=== PATIENT | male | born 1975 | race Caucasian/White ===

== ENCOUNTER 2016-10-04 15:50 | Emergency (ER) | payer SELFPAY ==
[2016-10-04 15:58] VITALS: BP 146/101
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
[2016-10-04] MEDS ORDERED: Acetaminophen TAB* 325 MG PO ONE (17:22)
--- NOTE | 2016-10-04 17:44 | RAD ---
Indication: Left wrist pain 3 views of the wrist demonstrates no fracture. No other bone or joint abnormality is identified. IMPRESSION: NO FRACTURE OF THE WRIST IS NOTED.
== END 2016-10-04 18:12 | disposition home or self-care (01) ==
LOC: UCEAST 15:50
DX: M25.532 Pain in left wrist (principal); V43.52XA Car driver injured in collision with other type car in traffic accident, initial encounter; R03.0 Elevated blood-pressure reading, without diagnosis of hypertension; F17.210 Nicotine dependence, cigarettes, uncomplicated
CPT/HCPCS: 99212; A9270-GY; G0463

== ENCOUNTER 2017-08-12 10:57 | Emergency (ER) | payer BC ==
[2017-08-12 12:39] VITALS: BP 125/79
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
--- NOTE | 2017-08-12 13:14 | RAD ---
Indication: Left hip pain. 2 views of left hip demonstrates no fracture. No other bone or joint abnormality is noted. IMPRESSION: No fracture of left hip is present.
== END 2017-08-12 13:28 | disposition home or self-care (01) ==
LOC: UCCORT 10:57
DX: S39.011A Strain of muscle, fascia and tendon of abdomen, initial encounter (principal); Y93.39 Activity, other involving climbing, rappelling and jumping off; Y93.89 Activity, other specified; Y92.9 Unspecified place or not applicable; Z88.0 Allergy status to penicillin; F17.210 Nicotine dependence, cigarettes, uncomplicated
CPT/HCPCS: 99212; G0463

== ENCOUNTER 2018-06-08 10:04 | Emergency (ER) | payer BC ==
--- NOTE | 2018-06-08 10:08 | UC ---
Respiratory Complaint HPI - HPI Summary HPI Summary: 42 yo male presents with fever, fatigue, body aches, and cough for the last 2 days. He has taken advil otc with mild relief. He is still smoking daily. Feels a little short of breath today. Does not believe he has had any sick contacts. Denies sore throat, sinus symptoms, chest pain, abdominal pain, n/v - History of Current Complaint Stated Complaint: URI Time Seen by Provider: 06/08/18 10:08 Hx Obtained From: Patient Onset/Duration: Sudden Onset Severity Initially: Moderate Severity Currently: Moderate Pain Intensity: 5 Pain Scale Used: 0-10 Numeric Character: Cough: Nonproductive - Allergies/Home Medications Allergies/Adverse Reactions: Allergies Allergy/AdvReac Type Severity Reaction Status Date / Time Penicillins Allergy Rash Verified 06/08/18 10:14 Home Medications: Home Medications Lisinopril TAB* [Prinivil TAB*] 10 mg PO DAILY 06/08/18 [History Confirmed 06/08] Naproxen Sodium [Aleve] 440 mg PO Q12HR PRN 06/08/18 [History Confirmed 06/08/18 ] PMH/Surg Hx/FS Hx/Imm Hx Endocrine History: Dyslipidemia Cardiovascular History: Hypertension - Surgical History Surgical History: Yes Surgery Procedure, Year, and Place: HERNIA, SHOULDER DECOMPRESSION RIGHT. REMOVAL OF MOLES - Family History Known Family History: Negative: Cardiac Disease, Hypertension, Diabetes - Social History Occupation: Unemployed Lives: With Family Alcohol Use: Weekly Substance Use Type: None Smoking Status (MU): Heavy Every Day Tobacco Smoker Type: Cigarettes Amount Used/How Often: 1 ppd Length of Time of Smoking/Using Tobacco: 20 yrs Have You Smoked in the Last Year: Yes - Immunization History Vaccination Up to Date: Yes Review of Systems All Other Systems Reviewed And Are Negative: Yes Constitutional: Positive: Fever, Fatigue, Other - Body aches Skin: Positive: Negative Eyes: Positive: Negative ENT: Positive: Negative Respiratory: Positive: Cough Cardiovascular: Positive: Negative Gastrointestinal: Positive: Negative Neurovascular: Positive: Negative Neurological: Positive: Negative Psychological: Positive: Negative Physical Exam - Summary Physical Exam Summary: GENERAL: NAD. WDWN. No pain distress. SKIN: No rashes, sores, lesions, or open wounds. HEENT: Head: AT/NC Eyes: Conjunctiva clear without inflammation or discharge. Ears: Hearing grossly normal. TMs intact, no bulging, erythema, or edema. Nose: Nasal mucosa pink and moist. NTTP maxillary and frontal sinus. Throat: Posterior oropharynx without exudates, erythema, or tonsillar enlargement. Uvula midline. NECK: Supple. Nontender. No lymphadenopathy. CHEST: Mild wheezing throughout. No r/r. No accessory muscle use. Breathing comfortably and in no distress. CV: RRR. Without m/r/g. Pulses intact. Cap refill <2seconds NEURO: Alert. PSYCH: Age appropriate behavior. Triage Information Reviewed: Yes Vital Signs: Vital Signs: Temp Pulse Resp BP Pulse Ox 98.9 F 102 24 129/78 94 06/08/18 10:12 06/08/18 10:12 06/08/18 10:12 06/08/18 10:12 06/08/18 10:12 Laboratory Tests 06/08/18 10:48 Influenza A (Rapid) Positive A Vital Signs Reviewed: Yes Respiratory Course/Dx - Course Course Of Treatment: CXR: IMPRESSION: #. Consider mild bronchopneumonia. Duoneb: Significant improvement. Pt feels easier to get a deep breath and coughing improved. Lung sounds improved with decreased wheezing. O2% still around 94%, but clinically is much improved. He has no significant comorbidities such as diabetes, COPD, or CHF/CAD. POC flu positive. Will dc with prednisone, tamiflu, and azithromycin. Encouraged to have a low threshold for returning for a recheck. If he develops SOB or worsening symptoms to go to the ED. - Differential Dx/Diagnosis Provider Diagnosis: Bronchopneumonia, Influenza Discharge - Sign-Out/Discharge Documenting (check all that apply): Patient Departure All imaging exams completed and their final reports reviewed: Yes - Discharge Plan Condition: Stable Disposition: HOME Prescriptions: Azithromycin TAB* [Zithromax TAB (Z-EM) 250 mg #6 tabs] 2 tab PO .TODAY, THEN 1 DAILY #1 em Oseltamivir CAP* [Tamiflu CAP*] 75 mg PO BID #10 cap predniSONE TAB* [Deltasone 20 MG TAB*] 40 mg PO DAILY #9 tab Patient Education Materials: Influenza (DC), Community Acquired Pneumonia (ED) Referrals: Mayo Vu MD [Primary Care Provider] - Additional Instructions: If you develop a fever, shortness of breath, chest pain, new or worsening symptoms - please call your PCP or go to the ED. 1) May take tylenol for your fever and general discomfort 2) Rest and drink plenty of fluids! - Billing Disposition and Condition Condition: STABLE Disposition: Home
[2018-06-08] MEDS ORDERED: Albuterol/Ipratropium NEB.SOL* Albuterol 2.5 MG/Ipratropium 0.5 MG 3 ML INH ONE (10:14)
[2018-06-08 10:17] VITALS: BP 129/78
[2018-06-08 10:53] LABS: Influenza A Molecular POSITIVE (Negative)
== END 2018-06-08 11:15 | disposition home or self-care (01) ==
LOC: UCEAST 10:04
DX: J11.08 Influenza due to unidentified influenza virus with specified pneumonia (principal); J18.0 Bronchopneumonia, unspecified organism; I10 Essential (primary) hypertension; Z88.0 Allergy status to penicillin; F17.210 Nicotine dependence, cigarettes, uncomplicated
CPT/HCPCS: 71046; 99212; A9270-GY; G0463

== ENCOUNTER 2019-04-28 18:32 | Emergency (ER) | payer BC ==
--- NOTE | 2019-04-28 18:52 | UC ---
Cardiac HPI - HPI Summary HPI Summary: 43 yo smoker who comes in with a one day history of left subscapular pain, severe enough to cause some discomfort with breathing. He has a hx of hypertension and smokes regularly, with a positive family history of NV in his father(3 NV's and past stenting, current age of 70). He has in the past had calcific tendonitis of the left shoulder and injections in the cervical spine for treatment of chronic neck pain. Pain relieves with resting and is worsened with sitting upright. - History of Current Complaint Stated Complaint: LEFT SHOULDER PAIN, HAND NUMBNESS Time Seen by Provider: 04/28/19 18:50 Hx Obtained From: Patient Onset/Duration: Gradual Onset, Lasting Hours - about 20 Timing: Constant Initial Severity: Moderate Current Severity: Moderate Character: Fast Aggravating Factor(s): Position Alleviating Factor(s): Rest, Position Associated Signs & Symptoms: Positive: Diaphoresis, Back Pain - Risk Factors Cardiac Risk Factors: Hypertension, Smoking, Family History Atrial Fibrillation: Negative TAD Risk Factors: Negative AMI/ACS Risk Factors: Obesity, Family History, Hypertension, Smoking - Allergy/Home Medications Allergies/Adverse Reactions: Allergies Allergy/AdvReac Type Severity Reaction Status Date / Time Penicillins Allergy Rash Verified 04/28/19 18:48 Home Medications: Home Medications Cetirizine HCl [Zyrtec] 10 mg PO DAILY 04/28/19 [History Confirmed 04/28/19] Cyclobenzaprine TAB* [Flexeril 10 MG TAB*] 10 mg PO DAILY 04/28/19 [History Confirmed 04/28/19] PMH/Surg Hx/FS Hx/Imm Hx Previously Healthy: No - obese smoker Endocrine History: Dyslipidemia Cardiovascular History: Hypertension - Surgical History Surgical History: Yes Surgery Procedure, Year, and Place: HERNIA, SHOULDER DECOMPRESSION RIGHT. REMOVAL OF MOLES - Family History Known Family History: Positive: Cardiac Disease - father has had NV's and stenting, living age 70+ Negative: Hypertension, Diabetes - Social History Occupation: Employed Full-time Lives: With Family Alcohol Use: Weekly Substance Use Type: None Smoking Status (MU): Heavy Every Day Tobacco Smoker Type: Cigarettes Amount Used/How Often: 1 ppd Length of Time of Smoking/Using Tobacco: 20 yrs Have You Smoked in the Last Year: Yes - Immunization History Vaccination Up to Date: Yes Review of Systems All Other Systems Reviewed And Are Negative: Yes Constitutional: Positive: Fatigue Skin: Positive: Negative Eyes: Positive: Negative ENT: Positive: Negative Respiratory: Positive: Shortness Of Breath Gastrointestinal: Positive: Negative Genitourinary: Positive: Negative Motor: Positive: Negative Neurovascular: Positive: Negative Musculoskeletal: Positive: Negative Neurological: Positive: Negative Psychological: Positive: Negative Is Patient Immunocompromised?: No Physical Exam Triage Information Reviewed: Yes Appearance: Pain Distress - mild to moderate, Obese, Other: - mildly flushed and diaphoretic. Vital Signs Reviewed: Yes Eyes: Positive: Conjunctiva Clear ENT: Positive: Pharynx normal Neck: Positive: Supple, Nontender, No Lymphadenopathy Respiratory: Positive: Lungs clear, Normal breath sounds Cardiovascular: Positive: RRR, No Murmur Abdomen Description: Positive: Nontender, No Organomegaly, Soft Musculoskeletal Exam: Normal Musculoskeletal: Positive: Strength Intact, Other: - tenderness left rhomboid at scapular insertion. Neurological Exam: Normal Neurological: Positive: Alert, Muscle Tone Normal Psychological Exam: Normal Skin Exam: Normal Diagnostics - EKG Cardiac Rate: NL Cardiac Rhythm: Sinus: Normal Ectopy: None ST Segment: Non-Specific - flipped t wave in 3, widened QRS complex in 3 with interventricular delay - Assessment/Plan Course Of Treatment: Advised ER given risk factors and EKG changes with conduction delay. Aspirin given at this time due to heart disease risk although chest pain is atypical. - Differential Diagnoses - Chest Pain Differential Diagnosis/HQI/PQRI: Acute NV, ACS, Chest Wall, GI Disease - Clinical Impression Provider Diagnosis: Back pain, Abnormal finding on EKG - Physician Notifications Discussed Patient Care With: Dr. Rowell Time Discussed With Above Provider: 19:15 Discharge ED - Sign-Out/Discharge Documenting (check all that apply): Patient Departure All imaging exams completed and their final reports reviewed: No Studies - Discharge Plan Condition: Stable Disposition: TRANS HIGHER LVL OF CARE FAC Patient Education Materials: Back Pain (ED) Referrals: Mayo Vu MD [Primary Care Provider] - Additional Instructions: Please proceed directly to the emergency room for evaluation of changes in your EKG along with pain in the posterior back. - Billing Disposition and Condition Condition: STABLE Disposition: Trans Higher Lvl of Care Fac
[2019-04-28 18:56] VITALS: BP 131/89
[2019-04-28] MEDS ORDERED: Aspirin 81 mg CHEW TAB* 81 MG TAB.CHEW PO ONE (19:03)
== END 2019-04-28 19:30 | disposition short-term general hospital (02) ==
LOC: UCCORT 18:32
DX: M54.9 Dorsalgia, unspecified (principal); R94.31 Abnormal electrocardiogram [ECG] [EKG]; I10 Essential (primary) hypertension; R53.83 Other fatigue; R06.02 Shortness of breath; Z88.0 Allergy status to penicillin; F17.210 Nicotine dependence, cigarettes, uncomplicated
CPT/HCPCS: 93005; 99212; A9270-GY; G0463

== ENCOUNTER 2019-07-23 17:29 | Emergency (ER) | payer BC ==
[2019-07-23 17:51] VITALS: BP 119/70
--- NOTE | 2019-07-23 18:02 | UC ---
Lower Extremity/Ankle HPI - HPI Summary HPI Summary: Pt presents with c/o atraumatic right foot pain that began 07/21/19. Pt states that he spends long periods of time standing at work and he wore thicker socks than usual on sunday and noticed that his right foot began to hurt. Pt denies any injury or previous injury or surgery to foot. Pt states pain is mostly on lateral side and on dorsal side of foot. no hx of gout, no swelling. - History of Current Complaint Chief Complaint: UCLowerExtremity Stated Complaint: RT FOOT PAIN Time Seen by Provider: 07/23/19 17:44 Hx Obtained From: Patient Onset/Duration: Gradual Onset, Lasting Days, Still Present, Worse Since - onset Severity Initially: Mild Severity Currently: Moderate Pain Intensity: 5 Aggravating Factor(s): Standing, Ambulation Alleviating Factor(s): Rest, Elevation, Ice Able to Bear Weight: Yes - painful - Risk Factors Gout Risk Factors: Age Over 40, Male DVT Risk Factors: Negative Septic Arthritis Risk Factor: Negative - Allergies/Home Medications Allergies/Adverse Reactions: Allergies Allergy/AdvReac Type Severity Reaction Status Date / Time Penicillins Allergy Rash Verified 07/23/19 17:44 Home Medications: Home Medications Fenofibrate 160 mg PO DAILY 08/12/17 [History Confirmed 07/23/19] Lisinopril TAB* [Prinivil TAB*] 10 mg PO DAILY 06/08/18 [History Confirmed 07/22] Cetirizine HCl [Zyrtec] 10 mg PO DAILY 04/28/19 [History Confirmed 07/23/19] Cyclobenzaprine TAB* [Flexeril 10 MG TAB*] 10 mg PO DAILY 04/28/19 [History Confirmed 07/23/19] Acetaminophen [Acetaminophen Extra Strength] 1,000 mg PO Q6H PRN 07/23/19 [ History Confirmed 07/23/19] metFORMIN* [Glucophage 500 MG TAB *] 500 mg PO BID 07/23/19 [History Confirmed 07/23/19] PMH/Surg Hx/FS Hx/Imm Hx Previously Healthy: Yes Endocrine History: Diabetes Cardiovascular History: Hypertension - Surgical History Surgical History: Yes Surgery Procedure, Year, and Place: HERNIA, SHOULDER DECOMPRESSION RIGHT. REMOVAL OF MOLES - Family History Known Family History: Positive: Cardiac Disease - father has had DE's and stenting, living age 70+ Negative: Hypertension, Diabetes - Social History Occupation: Employed Full-time Lives: With Family Alcohol Use: 1 beer daily Substance Use Type: Marijuana Substance Use Comment - Amount & Last Used: Occasionally Smoking Status (MU): Heavy Every Day Tobacco Smoker Type: Cigarettes Amount Used/How Often: 1 1/2 PPD Length of Time of Smoking/Using Tobacco: Since Age 19 Have You Smoked in the Last Year: Yes - Immunization History Vaccination Up to Date: Yes Review of Systems All Other Systems Reviewed And Are Negative: Yes Constitutional: Positive: Negative Skin: Positive: Negative Eyes: Positive: Negative ENT: Positive: Negative Respiratory: Positive: Negative Cardiovascular: Positive: Negative Gastrointestinal: Positive: Negative Genitourinary: Positive: Negative Motor: Positive: Negative Neurovascular: Positive: Negative Musculoskeletal: Positive: Arthralgia - right foot,, Myalgia - right foot Neurological/Mental Status: Positive: Negative Psychological: Positive: Negative Is Patient Immunocompromised?: No Physical Exam Triage Information Reviewed: Yes Appearance: Well-Appearing Vital Signs: Initial Vital Signs Temp 98 F 07/23/19 17:41 Pulse 82 07/23/19 17:41 Resp 20 07/23/19 17:41 BP 119/70 07/23/19 17:41 Pulse Ox 98 07/23/19 17:41 Vital Signs Reviewed: Yes Eye Exam: Normal ENT Exam: Normal ENT: Positive: Hearing grossly normal Respiratory: Positive: No respiratory distress Musculoskeletal: Positive: Other: - c/o tenderness right foot lateral aspect, at mid foot and dorsal aspect proximal metatarsals 2-4. Lower Extremity Course/Dx - Differential Dx/Diagnosis Differential Diagnosis/HQI/PQRI: Gout, Phlebitis, Sprain, Strain, Tendonitis, Tenosynovitis Provider Diagnosis: Right foot pain, Tendinitis of right foot Discharge ED - Sign-Out/Discharge Documenting (check all that apply): Patient Departure All imaging exams completed and their final reports reviewed: No Studies - Discharge Plan Condition: Stable Disposition: HOME Patient Education Materials: Tendinitis (ED), R.I.C.E. Treatment (ED), Safe Use of NSAIDs (ED) Referrals: Martin Smith MD [Medical Doctor] - If Needed Mayo Vu MD [Primary Care Provider] - If Needed - Billing Disposition and Condition Condition: STABLE Disposition: Home - Attestation Statements Provider Attestation: This patient was not seen by me. I was available for consult. Chart reviewed. RIZWANA
== END 2019-07-23 18:08 | disposition home or self-care (01) ==
LOC: UCCORT 17:29
DX: M79.671 Pain in right foot (principal); M77.9 Enthesopathy, unspecified; E11.9 Type 2 diabetes mellitus without complications; I10 Essential (primary) hypertension; Z79.84 Long term (current) use of oral hypoglycemic drugs; Z79.899 Other long term (current) drug therapy; Z88.0 Allergy status to penicillin; F17.210 Nicotine dependence, cigarettes, uncomplicated
CPT/HCPCS: 99211; G0463